=== PATIENT | female | born 1980 | race African-American/Black ===

== ENCOUNTER 2018-07-23 12:03 | Emergency (ER) | payer OTHER ==
[~2018-07-23] VITALS: Ht 160 cm; Wt 76.2 kg
[2018-07-23 12:03] VITALS: BP 138/97
== END 2018-07-23 16:48 | disposition home or self-care (01) ==
LOC: ER 12:03
DX: M54.9 Dorsalgia, unspecified (principal); Z53.21 Procedure and treatment not carried out due to patient leaving prior to being seen by health care provider